=== PATIENT | male | born 1975 | race African-American/Black ===

== ENCOUNTER 2016-08-01 14:08 | Inpatient (IN) | payer MEDICAID ==
[~2016-08-01] VITALS: Ht 167.6 cm; Wt 54.4 kg
[~2016-08-01 14:08] MED LIST: DILANTIN
[2016-08-01] MEDS ORDERED: SODIUM CHLORIDE 0.9% 1000ML BAG (SEPSIS BOLUS) IV ONE (15:30)
[2016-08-01 15:46] LABS: CLARITY URINE CLEAR (CLEAR); COLOR URINE YELLOW (YELLOW); GLUCOSE URINE NEGATIVE (NEGATIVE); KETONES URINE NEGATIVE (NEGATIVE); LEUKOCYTE ESTERASE URINE NEGATIVE (NEGATIVE); NITRITE URINE NEGATIVE (NEGATIVE); OCCULT BLOOD URINE NEGATIVE (NEGATIVE); PROTEIN URINE NEGATIVE (NEGATIVE); SPECIFIC GRAVITY URINE 1.095 (1.005-1.030); UROBILINOGEN URINE 0.2 E.U./dL (0.2-1.0)
[2016-08-01 15:49] LABS: BASOPHILS % 0.8 % (0.0-2.0); EOSINOPHILS % 2.1 % (0.0-5.0); HEMATOCRIT. 32.6 % (42.0-52.0); HEMOGLOBIN. 10.5 g/dL (14.0-18.0); LYMPHOCYTES % 12.5 % (20.0-50.0); MEAN CORPUSCULAR HEMOGLOBIN 30.9 pg (28.0-32.0); MEAN CORPUSCULAR VOLUME 95.4 fL (80.0-94.0); MEAN PLATELET VOLUME 6.4 fl (7.4-10.4); MONOCYTES % 8.6 % (2.0-8.0); PLATELET 589 x1000/uL (130-400); RED BLOOD CELL COUNT 3.42 mill/uL (4.7-6.1); RED CELL DISTRIBUTION WIDTH 15.4 % (11.6-14.6)
[2016-08-01 15:50] LABS: BG BASE EXCESS 5.4 mmol/L (-2.0-2.0); BG CARBOXYHEMOGLOBIN 0.2 % (0.5-1.5); BG DEOXYHEMOGLOBIN 3.3 % (0.0-5.0); BG FRACTION INSPIRED OXYGEN 21; BG HCO3 ACT 29.3 mmol/L (22.0-26.0); BG METHEMOGLOBIN 0.2 % (0.0-1.5); BG OXYGEN SATURATION 96.7 % (92.0-98.5); BG OXYHEMOGLOBIN 96.3 % (94.0-97.0); BG PCO2 40.3 mmHg (35.0-45.0); BG PH 7.479 (7.350-7.450); BG PO2 88.8 mmHg (75.0-100.0); BG SAMPLE SITE RIGHT BRACHIAL; BG TOTAL HEMOGLOBIN 11.5 g/dL (12.0-18.0); BG VENT MODE ROOM AIR
[2016-08-01 15:53] LABS: CHLORIDE 98 mEq/L (98-107)
[2016-08-01 15:54] LABS: INR 1.2; PARTIAL THROMBOPLASTIN TIME 30.8 sec (24.0-34.0); PROTHROMBIN TIME 12.3 sec
[2016-08-01 15:59] LABS: *AMPHETAMINES SCREEN URINE NEGATIVE (NEGATIVE); *BARBITURATES SCREEN URINE NEGATIVE (NEGATIVE); *BENZODIAZEPINES SCREEN URINE NEGATIVE (NEGATIVE); *COCAINE SCREEN URINE NEGATIVE (NEGATIVE); CANNABINOID URINE SCREEN PRESUMTIVE POSITIVE (NEGATIVE); METHADONE URINE SCREEN NEGATIVE (NEGATIVE); OPIATES URINE SCREEN NEGATIVE (NEGATIVE); PHENCYCLIDINE URINE SCREEN NEGATIVE (NEGATIVE)
[2016-08-01 15:59] LABS: CARBON DIOXIDE 31 mEq/L (21-32)
[2016-08-01 16:02] LABS: PHENYTOIN 3.4 ug/mL (10-20)
[2016-08-01 16:03] LABS: CREATINE KINASE 53 IU/L (39-308); TROPONIN I < 0.02 ng/mL (0.00-0.04)
[2016-08-01 16:05] LABS: CREATINE KINASE MB FRACTION < 0.5 ng/mL (0.5-3.6)
[2016-08-01] MEDS ORDERED: LEVOFLOXACIN 500MG PREMIX 100 ML IV ONE (16:15)
[2016-08-01] MEDS ORDERED: IPRATROPIUM/ALBUTEROL 0.5-3(2.5)MG/3ML NEB HHN PRN (16:30)
[2016-08-01] MEDS ORDERED: PHENYTOIN SODIUM 1,000 MG in SODIUM CHLORIDE 0.9% 100 ML IV ONE (17:15)
[2016-08-01] MEDS ORDERED: LEVE1000 PO (18:19)
[2016-08-01 22:00] VITALS: BP 115/78
[2016-08-01] MEDS ORDERED: CLONIDINE 0.1MG TABLET PO PRN (22:00)
[2016-08-01] MEDS ORDERED: ACETAMINOPHEN 325MG TABLET PO PRN (22:00)
[2016-08-01] MEDS ORDERED: IPRATROPIUM/ALBUTEROL 0.5-3(2.5)MG/3ML NEB INH PRN (22:00)
[2016-08-01] MEDS ORDERED: ONDANSETRON HCL 4MG/2ML VIAL IV PRN (22:00)
[2016-08-01] MEDS ORDERED: MAGNESIUM/ALUMINUM HYDROXIDE/SIMETHICONE 30ML UDC PO PRN (22:00)
[2016-08-01 22:45] VITALS: BP 115/78
[2016-08-01 23:24] LABS: CREATINE KINASE 51 IU/L (39-308); CREATINE KINASE MB FRACTION 0.6 ng/mL (0.5-3.6); TROPONIN I < 0.02 ng/mL (0.00-0.04)
[2016-08-02] VITALS (16 sets, daily range): BP systolic 106–145; BP diastolic 68–95
[2016-08-02] MEDS: VANCOMYCIN 1 G PREMIX 200 ML IV SCH ×3 (00:20→21:58)
[2016-08-02] MEDS: PIPERACILLIN/TAZ 3.375G PREMIX 50 ML IV SCH ×3 (00:21→21:55)
[2016-08-02 07:19] LABS: BASOPHILS % 0.5 % (0.0-2.0); EOSINOPHILS % 2.4 % (0.0-5.0); HEMATOCRIT. 34.4 % (42.0-52.0); LYMPHOCYTES % 21.9 % (20.0-50.0); MEAN CORPUSCULAR HEMOGLOBIN 30.8 pg (28.0-32.0); MEAN CORPUSCULAR VOLUME 96.5 fL (80.0-94.0); MEAN PLATELET VOLUME 6.6 fl (7.4-10.4); NEUTROPHILS % 66.2 % (40.0-76.0); PLATELET 630 x1000/uL (130-400); RED BLOOD CELL COUNT 3.57 mill/uL (4.7-6.1); RED CELL DISTRIBUTION WIDTH 15.9 % (11.6-14.6)
[2016-08-02 07:48] LABS: CARBON DIOXIDE 27 mEq/L (21-32); CHLORIDE 101 mEq/L (98-107); CREATINE KINASE 49 IU/L (39-308); CREATINE KINASE MB FRACTION < 0.5 ng/mL (0.5-3.6); HDL CHOLESTEROL 34 mg/dL (40-59); LDL CHOLESTEROL 84 mg/dL (5-100); TROPONIN I < 0.02 ng/mL (0.00-0.04)
[2016-08-02] MEDS ORDERED: FENTANYL CITRATE/PF 50MCG/ML 2ML VIAL ONE (10:59)
[2016-08-02] MEDS ORDERED: FENTANYL CITRATE/PF 50MCG/ML 2ML VIAL IV SCH (12:15)
[2016-08-02] MEDS: HYDROCODONE/ACETAMINOPHEN 5/325MG TABLET PO PRN ×3 (14:25→22:04)
[2016-08-02] MEDS ORDERED: PIPERACILLIN/TAZ 3.375G PREMIX 50 ML IV SCH (15:00)
[2016-08-03] VITALS: BP 107/69
[2016-08-03] MEDS ORDERED: LEVE1000 PO (03:40)
[2016-08-03] MEDS: PIPERACILLIN/TAZ 3.375G PREMIX 50 ML IV SCH ×3 (03:48→20:08)
[2016-08-03] MEDS: HYDROCODONE/ACETAMINOPHEN 5/325MG TABLET PO PRN ×4 (04:00→20:12)
[2016-08-03] MEDS: VANCOMYCIN 1 G PREMIX 200 ML IV SCH (05:15)
[2016-08-03 08:00] VITALS: BP 111/65
[2016-08-03 12:02] VITALS: BP 102/74
[2016-08-03 16:06] VITALS: BP 110/89
[2016-08-03] MEDS: VANCOMYCIN 750 MG PREMIX 150 ML IV SCH (17:24)
[2016-08-03 20:01] VITALS: BP 113/74
[2016-08-04] VITALS: BP 104/62
[2016-08-04] MEDS: HYDROCODONE/ACETAMINOPHEN 5/325MG TABLET PO PRN ×5 (00:28→20:32)
[2016-08-04] MEDS: VANCOMYCIN 750 MG PREMIX 150 ML IV SCH ×3 (02:00→18:31)
[2016-08-04 04:00] VITALS: BP 104/68
[2016-08-04] MEDS: PIPERACILLIN/TAZ 3.375G PREMIX 50 ML IV SCH ×3 (04:17→20:31)
[2016-08-04 08:00] VITALS: BP 114/76
[2016-08-04 12:00] VITALS: BP 119/78
[2016-08-04 16:05] VITALS: BP 121/76
[2016-08-04] MEDS ORDERED: LEVETIRACETAM 500MG TABLET PO SCH (18:30)
[2016-08-04] MEDS ORDERED: PHENYTOIN SODIUM EXTENDED 100MG CAPSULE PO SCH (18:30)
[2016-08-04] MEDS: LEVETIRACETAM 500MG TABLET PO SCH (18:31)
[2016-08-04] MEDS: PHENYTOIN SODIUM EXTENDED 100MG CAPSULE PO SCH (18:31)
[2016-08-04 20:00] VITALS: BP 126/84
[2016-08-05] VITALS: BP 107/76
[2016-08-05] MEDS: HYDROCODONE/ACETAMINOPHEN 5/325MG TABLET PO PRN ×4 (00:22→16:43)
[2016-08-05] MEDS: VANCOMYCIN 750 MG PREMIX 150 ML IV SCH ×3 (02:11→18:00)
[2016-08-05] MEDS: PIPERACILLIN/TAZ 3.375G PREMIX 50 ML IV SCH ×3 (04:19→20:01)
[2016-08-05 04:31] VITALS: BP 119/80
[2016-08-05] MEDS: LEVETIRACETAM 500MG TABLET PO SCH ×2 (06:24→18:01)
[2016-08-05] MEDS: PHENYTOIN SODIUM EXTENDED 100MG CAPSULE PO SCH ×2 (06:24→18:01)
[2016-08-05 08:52] LABS: CARBON DIOXIDE 32 mEq/L (21-32); CHLORIDE 99 mEq/L (98-107); VANCOMYCIN TROUGH 19.1 ug/mL (5.0-10.0)
[2016-08-05 09:17] VITALS: BP 117/71
[2016-08-05 12:31] VITALS: BP 117/73
[2016-08-05 17:15] VITALS: BP 131/85
[2016-08-05 20:00] VITALS: BP 124/78
[2016-08-06] VITALS: BP 121/77
[2016-08-06] MEDS: VANCOMYCIN 750 MG PREMIX 150 ML IV SCH ×3 (02:30→17:26)
[2016-08-06] MEDS: HYDROCODONE/ACETAMINOPHEN 5/325MG TABLET PO PRN ×3 (02:30→20:15)
[2016-08-06 04:00] VITALS: BP 119/75
[2016-08-06] MEDS: PIPERACILLIN/TAZ 3.375G PREMIX 50 ML IV SCH ×3 (04:10→20:15)
[2016-08-06 06:16] LABS: HEMATOCRIT 30.3 % (42.0-52.0); HEMOGLOBIN 10.2 g/dL (14.0-18.0); MEAN CORPUSCULAR HEMOGLOBIN 32.4 pg (28.0-32.0); MEAN CORPUSCULAR VOLUME 96.2 fL (80.0-94.0); PLATELET 616 x1000/uL (130-400); RED BLOOD CELL COUNT 3.15 mill/uL (4.7-6.1); RED CELL DISTRIBUTION WIDTH 15.9 % (11.6-14.6)
[2016-08-06] MEDS: LEVETIRACETAM 500MG TABLET PO SCH ×2 (06:30→17:40)
[2016-08-06] MEDS: PHENYTOIN SODIUM EXTENDED 100MG CAPSULE PO SCH ×2 (06:30→17:40)
[2016-08-06 08:00] VITALS: BP 112/70
[2016-08-06 12:01] VITALS: BP 115/81
[2016-08-06 16:34] VITALS: BP 113/83
[2016-08-06 20:00] VITALS: BP 120/76
[2016-08-06 21:36] LABS: CARCINO EMBRYONIC ANTIGEN 0.7 ng/ml
[2016-08-07] VITALS: BP 119/80
[2016-08-07] MEDS ORDERED: HYDROCODONE/ACETAMINOPHEN 5/325MG TABLET PO PRN (00:45)
[2016-08-07] MEDS: VANCOMYCIN 750 MG PREMIX 150 ML IV SCH ×2 (02:06→10:27)
[2016-08-07] MEDS: PIPERACILLIN/TAZ 3.375G PREMIX 50 ML IV SCH (04:20)
[2016-08-07] MEDS: LEVETIRACETAM 500MG TABLET PO SCH (06:57)
[2016-08-07] MEDS: PHENYTOIN SODIUM EXTENDED 100MG CAPSULE PO SCH (06:57)
[2016-08-07 07:04] LABS: BASOPHILS % 1.9 % (0.0-2.0); EOSINOPHILS % 7.1 % (0.0-5.0); HEMATOCRIT. 33.3 % (42.0-52.0); HEMOGLOBIN. 10.9 g/dL (14.0-18.0); LYMPHOCYTES % 36.5 % (20.0-50.0); MEAN CORPUSCULAR HEMOGLOBIN 31.7 pg (28.0-32.0); MEAN PLATELET VOLUME 6.5 fl (7.4-10.4); MONOCYTES % 10.5 % (2.0-8.0); PLATELET 652 x1000/uL (130-400); RED BLOOD CELL COUNT 3.43 mill/uL (4.7-6.1); RED CELL DISTRIBUTION WIDTH 15.7 % (11.6-14.6)
[2016-08-07 07:29] LABS: CARBON DIOXIDE 32 mEq/L (21-32); CHLORIDE 102 mEq/L (98-107)
[2016-08-07 07:34] VITALS: BP 118/80
[2016-08-07 12:05] VITALS: BP 124/80
[2016-08-07] MEDS ORDERED: LIDOCAINE HCL 1% 20ML VIAL (Pyxis) INJ ONE (14:05)
[2016-08-07] MEDS ORDERED: SODIUM BICARBONATE 4% (2.4MEQ) 5ML VIAL IV ONE (14:05)
== END 2016-08-07 15:10 | disposition home or self-care (01) | DRG 720 ==
LOC: ER 15:37 → 6WST 15:58 → EDBEDREQ 16:06 → ENRESERV 20:28
PROVIDERS: ADMIT Internal Medicine; ATTEND Internal Medicine
PROC: 0W993ZX Drainage of Right Pleural Cavity, Percutaneous Approach, Diagnostic (ICD-10-PCS; principal; 2016-08-02)
PROC: 0WP8X0Z Removal of Drainage Device from Chest Wall, External Approach (ICD-10-PCS; 2016-08-02)
DX: A41.9 Sepsis, unspecified organism (principal); J86.9 Pyothorax without fistula; E43 Unspecified severe protein-calorie malnutrition; J18.9 Pneumonia, unspecified organism; J90 Pleural effusion, not elsewhere classified; D63.8 Anemia in other chronic diseases classified elsewhere; D75.89 Other specified diseases of blood and blood-forming organs; F12.10 Cannabis abuse, uncomplicated; G40.909 Epilepsy, unspecified, not intractable, without status epilepticus; J44.0 Chronic obstructive pulmonary disease with (acute) lower respiratory infection; J98.11 Atelectasis; E87.5 Hyperkalemia; Z87.891 Personal history of nicotine dependence
CPT/HCPCS: 32405; 36415; 36600; 71010; 71250; 77012; 80048; 80053; 80061; 80185; 80202; 80305; 81003; 82375; 82378; 82550; 82553; 82607; 82728; 82746; 82805; 82945; 83540; 83550; 83605; 83615; 83690; 83735; 83880; 84132; 84157; 84443; 84484; 85025; 85027; 85044; 85610; 85651; 85730; 86140; 86850; 86900; 87040; 87070; 87086; 87186; 87205; 88108; 88312; 89050; 93005; 93970; 96361; 96365; 96366; 99291; C1769; J1165; J1956; J2543; J3010; J3370; J3490; J7030; J7040; J7050; L8514

== ENCOUNTER 2023-11-25 06:45 | Emergency (ER) | payer MEDICAID ==
[~2023-11-25] VITALS: Ht 167.6 cm; Wt 59.0 kg
[~2023-11-25 06:45] MED LIST changes: +LEVE1000 PO
[2023-11-25 06:57] VITALS: BP 165/106; TEMP 97.8; O2SAT 98
[2023-11-25 07:45] VITALS: PULSE 92; RESP 18
[2023-11-25] MEDS: ACETAMINOPHEN 325MG TABLET PO ONE (08:12)
[2023-11-25] MEDS ORDERED: ACET-2708 MT (08:19)
[2023-11-25] MEDS ORDERED: IBUP-2029 MT (08:19)
== END 2023-11-25 08:23 | disposition home or self-care (01) ==
LOC: ER 06:45
DX: M25.512 Pain in left shoulder (principal); Z86.59 Personal history of other mental and behavioral disorders
CPT/HCPCS: 73030; 99283